=== PATIENT | female | born 1970 | race American Indian/Alaskan Native ===

== ENCOUNTER 2019-05-01 19:05 | Emergency (ER) | payer OTHER ==
[2019-05-01 19:58] VITALS: BP 138/89
--- NOTE | 2019-05-01 20:17 | Emergency Department Report ---
Chief Complaint: Skin/Abscess/Foreign Body Stated Complaint: BUMP ON FACE Time Seen by Provider: 05/01/19 20:13 - HPI History of Present Illness: 48 y/o female comes in for a bump on the left side chin. Patient reports that she was able to pull the core. now has a small knot. - Exam Vital Signs: Vital Signs 05/01/19 19:28 Temperature 98.6 F Pulse Rate 86 Respiratory 18 Rate Blood Pressure 138/89 O2 Sat by Pulse 99 Oximetry Physical Exam: Axo times 3 face left chin non edematous non erythmatous. NO TTP. no drainage. MSE screening note: Focused history and physical exam performed. Due to findings the following was ordered: 48 y/o female comes in for a bump on the left side chin. Patient reports that she was able to pull the core. now has a small knot. You can use OTC neosporin cream twice a day. ED Disposition for MSE Condition: Stable Additional Instructions: You can use OTC neosporin cream twice a day. Referrals: PRIMARY CARE, [Primary Care Provider] - 3-5 Days
== END 2019-05-01 20:37 | disposition home or self-care (01) ==
LOC: ED 19:05
DX: R22.0 Localized swelling, mass and lump, head (principal)
CPT/HCPCS: 99282